=== PATIENT | male | born 1950 | race Two or more races ===

== ENCOUNTER 2021-09-17 22:42 | Emergency (ER) | payer MEDICARE ==
[~2021-09-17] VITALS: Ht 177.8 cm; Wt 82.6 kg
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
[2021-09-18] MEDS ORDERED: ACETAMINOPHEN 325 MG TABLET PO ONE (01:00)
[2021-09-18] MEDS ORDERED: ACETAMINOPHEN ES 500 MG TABLET ONE (01:05)
--- NOTE | 2021-09-18 01:10 | NUR ---
PT TAKEN TO CT VIA [facility]
--- NOTE | 2021-09-18 02:19 | NUR ---
Patient discharged to home in stable condition. Written and verbal after care instructions given. Patient verbalizes understanding of instruction. PT ambulatory with a steady gait
[2021-09-18 02:21] VITALS: BP 132/72
== END 2021-09-18 02:21 | disposition home or self-care (01) ==
LOC: ER 22:49
DX: S29.012A Strain of muscle and tendon of back wall of thorax, initial encounter (principal); S21.90XA Unspecified open wound of unspecified part of thorax, initial encounter; S80.02XA Contusion of left knee, initial encounter; S80.01XA Contusion of right knee, initial encounter; M54.50 Low back pain, unspecified; V89.2XXA Person injured in unspecified motor-vehicle accident, traffic, initial encounter; Y93.89 Activity, other specified; Y92.89 Other specified places as the place of occurrence of the external cause; Y99.8 Other external cause status
CPT/HCPCS: 72125-TC; 72131-TC; 73564-TC